=== PATIENT | female | born 2000 | race Caucasian/White ===

== ENCOUNTER 2019-10-31 14:25 | Emergency (ER) | payer SELFPAY ==
[~2019-10-31] VITALS: Ht 167.6 cm; Wt 53.1 kg
[2019-10-31 15:02] LABS: BILIRUBIN NEGATIVE (NEGATIVE); BLOOD 1+ (NEGATIVE); CLARITY SL CLOUDY (CLEAR); COLOR YELLOW (YELLOW); GLUCOSE NEGATIVE (NEGATIVE); KETONE NEGATIVE (NEGATIVE); SPECIFIC GRAVITY 1.025 (1.005-1.030)
[2019-10-31 15:03] LABS: LEUKO ESTERASE NEGATIVE (NEGATIVE); NITRITE NEGATIVE (NEGATIVE); UROBILINOGEN 0.2 E.U./dl (0.2-1.0)
[2019-10-31 15:07] LABS: BACTERIA 1+; MUCOUS TRACE; RBC 31-40 rbc/hpf (0-2)
[2019-10-31] MEDS ORDERED: AMINOPHYLLIN200 MG PO (16:29)
== END 2019-10-31 16:55 | disposition home or self-care (01) ==
LOC: ED 14:25
PROVIDERS: Physician Assistant
DX: N39.0 Urinary tract infection, site not specified (principal); R31.9 Hematuria, unspecified; Z88.8 Allergy status to other drugs, medicaments and biological substances

== ENCOUNTER 2019-11-10 15:22 | Emergency (ER) | payer SELFPAY ==
[~2019-11-10] VITALS: Ht 167.6 cm; Wt 52.2 kg
[~2019-11-10 15:22] MED LIST: AMINOPHYLLIN200 MG PO
[2019-11-10 16:14] LABS: BASO % 0.9 % (0.0-1.0); EOS % 0.7 % (1.0-4.0); HEMATOCRIT 37.8 % (37.0-47.0); HEMOGLOBIN 12.3 g/dl (12.0-16.0); LYMPH % 44.3 % (27.0-41.0); MEAN CELL VOLUME 87.5 fl (81.0-99.0); MEAN CORPUSCULAR HGB 28.5 pg (27.0-31.0); MEAN CORPUSCULAR HGB CONC 32.5 g/dl (33.0-37.0); MEAN PLATELET VOLUME 10.7 fl (9.6-12.3); MONO # 0.4 10*3/uL (0.1-1.0); MONO % 8.1 % (3.0-9.0); NEUT # 2.1 10*3/uL (2.3-7.9); NEUT % 45.8 % (47.0-73.0); PLATELET COUNT AUTOMATED 266 10*3/uL (130-400); RED BLOOD COUNT 4.32 10*6/uL (4.10-5.10); WHITE BLOOD COUNT 4.5 10*3/uL (4.8-10.8)
[2019-11-10 16:15] LABS: BILIRUBIN NEGATIVE (NEGATIVE); BLOOD TRACE-INTACT (NEGATIVE); CLARITY SL CLOUDY (CLEAR); COLOR YELLOW (YELLOW); GLUCOSE NEGATIVE (NEGATIVE); KETONE NEGATIVE (NEGATIVE); PH 6.5 (5.0-9.0); UROBILINOGEN 0.2 E.U./dl (0.2-1.0)
[2019-11-10 16:16] LABS: LEUKO ESTERASE NEGATIVE (NEGATIVE); NITRITE NEGATIVE (NEGATIVE)
[2019-11-10 16:25] LABS: BACTERIA 2+; CALCIUM OXALATE CRYSTALS 1+; MUCOUS 3+
[2019-11-10 16:28] LABS: ALKALINE PHOSPHATASE 52 U/L (45-117); BUN 3 mg/dl (7-24); CHLORIDE 113 mmol/L (98-107); CREATININE 0.62 mg/dL (0.55-1.02); LIPASE 78 U/L (73-393); POTASSIUM 3.9 mmol/L (3.5-5.1); SGOT/AST 8 IU/L (3-35); SGPT/ALT 20 U/L (12-78); SODIUM 144 mmol/L (136-145); TOTAL PROTEIN 6.6 gm/dL (6.4-8.2)
[2019-11-10] MEDS ORDERED: SEPTDS PO (17:31)
[2019-11-10] MEDS ORDERED: PYRIDIUM200 M1 PO (17:31)
[2019-11-10] MEDS ORDERED: PROTONIX20 MG PO (17:31)
== END 2019-11-10 17:58 | disposition home or self-care (01) ==
LOC: ED 15:22
PROVIDERS: Nurse Practitioner Family
DX: K21.9 Gastro-esophageal reflux disease without esophagitis (principal); R30.0 Dysuria; R35.0 Frequency of micturition; F17.200 Nicotine dependence, unspecified, uncomplicated; Z88.8 Allergy status to other drugs, medicaments and biological substances

== ENCOUNTER 2019-11-12 20:19 | Emergency (ER) | payer SELFPAY ==
[~2019-11-12] VITALS: Ht 167.6 cm; Wt 52.2 kg
[~2019-11-12 20:19] MED LIST changes: +PROTONIX20 MG PO; +PYRIDIUM200 M1 PO; +SEPTDS PO
[2019-11-12 21:25] LABS: BASO % 0.7 % (0.0-1.0); EOS % 0.6 % (1.0-4.0); HEMATOCRIT 36.8 % (37.0-47.0); HEMOGLOBIN 12.2 g/dl (12.0-16.0); LYMPH # 2.1 10*3/uL (1.3-4.4); LYMPH % 39.5 % (27.0-41.0); MEAN CELL VOLUME 87.2 fl (81.0-99.0); MEAN CORPUSCULAR HGB 28.9 pg (27.0-31.0); MEAN CORPUSCULAR HGB CONC 33.2 g/dl (33.0-37.0); MEAN PLATELET VOLUME 10.8 fl (9.6-12.3); MONO # 0.3 10*3/uL (0.1-1.0); MONO % 6.4 % (3.0-9.0); NEUT # 2.8 10*3/uL (2.3-7.9); NEUT % 52.6 % (47.0-73.0); PLATELET COUNT AUTOMATED 260 10*3/uL (130-400); RED BLOOD COUNT 4.22 10*6/uL (4.10-5.10); WHITE BLOOD COUNT 5.3 10*3/uL (4.8-10.8)
[2019-11-12 21:26] LABS: BILIRUBIN 3+ (NEGATIVE); BLOOD NEGATIVE (NEGATIVE); CLARITY SL CLOUDY (CLEAR); COLOR ORANGE (YELLOW); GLUCOSE NEGATIVE (NEGATIVE); KETONE 1+ (NEGATIVE); NITRITE POSITIVE (NEGATIVE); SPECIFIC GRAVITY 1.025 (1.005-1.030)
[2019-11-12 21:27] LABS: LEUKO ESTERASE NEGATIVE (NEGATIVE)
[2019-11-12 21:28] LABS: BACTERIA 1+; EPITHELIAL CELLS 31-40; MUCOUS 1+
[2019-11-12 21:29] LABS: CALCIUM OXALATE CRYSTALS 1+
[2019-11-12 21:44] LABS: ALBUMIN 3.9 gm/dl (3.1-4.5); ALKALINE PHOSPHATASE 52 U/L (45-117); BUN 3 mg/dl (7-24); CHLORIDE 112 mmol/L (98-107); CREATININE 0.62 mg/dL (0.55-1.02); LIPASE 78 U/L (73-393); POTASSIUM 3.6 mmol/L (3.5-5.1); SGOT/AST 8 IU/L (3-35); SGPT/ALT 18 U/L (12-78); SODIUM 143 mmol/L (136-145); TOTAL PROTEIN 6.5 gm/dL (6.4-8.2)
[2019-11-12 23:33] LABS: BLOOD NEGATIVE (NEGATIVE); CLARITY SL CLOUDY (CLEAR); COLOR ORANGE (YELLOW); GLUCOSE NEGATIVE (NEGATIVE); KETONE 1+ (NEGATIVE)
[2019-11-12 23:34] LABS: NITRITE POSITIVE (NEGATIVE)
[2019-11-12 23:35] LABS: BILIRUBIN 3+ (NEGATIVE); LEUKO ESTERASE NEGATIVE (NEGATIVE)
[2019-11-12 23:37] LABS: EPITHELIAL CELLS 40-45
[2019-11-12 23:39] LABS: BACTERIA 1+
[2019-11-16 21:04] LABS: GONOCOCCUS BY NAA Negative (Negative)
== END 2019-11-12 23:51 | disposition home or self-care (01) ==
LOC: ED 20:19
PROVIDERS: Physician Assistant
DX: R10.30 Lower abdominal pain, unspecified (principal); R10.2 Pelvic and perineal pain; Z88.8 Allergy status to other drugs, medicaments and biological substances; Z79.899 Other long term (current) drug therapy